=== PATIENT | male | born 1955 | race Caucasian/White ===

== ENCOUNTER 2018-09-12 06:20 | Inpatient (IN) | payer MEDICAID ==
[~2018-09-12] VITALS: Ht 172.7 cm; Wt 90.3 kg
[2018-09-12 06:25] VITALS: BP 133/72
--- NOTE | 2018-09-12 06:25 | NUR ---
63/M PRESENTS WITH DAUGHTER, REFERRED BY DR. RODRIGUEZ FOR I&D AND FISTULOTOMY SURGERY OF L ANTERIOR PERIANAL ABSCESS AND ANAL FISTULA. REPORTS 3/10 PERIANAL DISCOMFORT. DENIES FEVER. PT AOX4, GCS 15, RR EVEN AND UNLABORED. DENIES MED HX. REPORTS FINISHING ABX RX.
--- NOTE | 2018-09-12 06:31 | NUR ---
PT TAKEN TO BED 11
[2018-09-12] MEDS ORDERED: NACL 0.9% 1,000 ML IV ONE (06:40)
[2018-09-12 07:09] LABS: EOSINOPHILS # (AUTO) 0.1 K/uL (0-0.4); EOSINOPHILS % (AUTO) 2.6 % (0.0-4.0); HEMATOCRIT 41.8 % (36-52); LYMPHOCYTES # (AUTO) 1.7 K/uL (2.0-11.5); LYMPHOCYTES % (AUTO) 33.8 % (20.5-51.1); MEAN CORPUSCULAR HEMOGLOBIN 30 pg (27-31); MEAN CORPUSCULAR HGB CONC 33 g/dL (33-37); MEAN CORPUSCULAR VOLUME 91.1 fL (80-94); MONOCYTES # (AUTO) 0.3 K/uL (0.8-1.0); MONOCYTES % (AUTO) 6.1 % (1.7-9.3); NEUTROPHILS # (AUTO) 2.8 K/uL (1.8-7.7); NEUTROPHILS % (AUTO) 56.5 % (42.2-75.2); PLATELET COUNT (AUTO) 285 K/uL (140-450); RED BLOOD CELL COUNT(AUTO) 4.59 MIL/uL (4.20-6.10); RED CELL DISTRIBUTION WIDTH 13.7 % (11.6-13.7)
[2018-09-12 07:13] LABS: APPEARANCE,URINE CLEAR (CLEAR); BILIRUBIN,URINE NEGATIVE (NEGATIVE); BLOOD, URINE 3+ (NEGATIVE); COLOR,URINE YELLOW (YELLOW); LEUKOCYTE ESTERASE ,URINE NEGATIVE (NEGATIVE); NITRITE, URINE NEGATIVE (NEGATIVE); UGLUCOSE NEGATIVE (NEGATIVE)
[2018-09-12 07:17] LABS: ANION GAP 13.1 (8-16); CARBON DIOXIDE 26.5 mmol/L (21-32); CREATININE 0.8 mg/dL (0.7-1.3); POTASSIUM 3.6 mmol/L (3.5-5.1)
[2018-09-12 07:19] LABS: RBC,URINE 11-20 (MOD) /HPF (0-5)
[2018-09-12 07:20] LABS: WBC,URINE 0-5 (RARE) /HPF (0-5)
[2018-09-12 07:23] LABS: ALBUMIN 4.1 g/dL (3.4-5.0)
--- NOTE | 2018-09-12 07:23 | NUR ---
Pt report given to KATRINA. Transfer of care at this time.
[2018-09-12] MEDS ORDERED: LORazepam 2 MG/ML VIAL IVP PRN (08:00)
[2018-09-12] MEDS ORDERED: MORPHINE SULFATE 2 MG/ML SYR IVP PRN (08:00)
[2018-09-12] MEDS ORDERED: ACETAMINOPHEN 325 MG TAB PO PRN (08:00)
[2018-09-12] MEDS ORDERED: ONDANSETRON 4 MG/2 ML VIAL IVP PRN (08:00)
[2018-09-12] MEDS ORDERED: ALBUTEROL 0.083% 2.5 MG/3 ML NEBU INH PRN (08:00)
--- NOTE | 2018-09-12 08:17 | NUR ---
PT. RESTING IN BED, RR EVEN AND UNLABORED . VSS. FAMILY MEMBER AT BEDSIDE. HOB ELEVATED. WILL CONTINUE TO MONITOR. SAFETY PRECAUTIONS IN PLACE.
--- NOTE | 2018-09-12 09:00 | NUR ---
Note pina in EDM - 09/12/18 at 0910 by CADE Patient will be admitted to care of DR. DELCID . Admited to MED SURG . Will go to room 105B. Belongings list completed. Report to SHEKHAR PHILIP .
[2018-09-12 09:05] VITALS: BP 113/72
--- NOTE | 2018-09-12 09:05 | NUR ---
PATIENT WAS TRANSFERRED IN WHEELCHAIR FROM ER. PATIENT AMBULATED SELF TO BED. REPORT WAS GIVEN AT BEDSIDE. VS WAS TAKEN. MRSA WAS SWABBED. PATIENT WAS AWAKE, ALERT. RESPIRATION EVEN, UNLABOR. SKIN DRY AND WARM. IV PATENT AND INTACT. DENIED PAIN, SOB. PATIENT WAS ORIENTED ROOM, STAFF, AND CALL LIGHT. PLAN OF CARE WAS DISCUSSED WITH PATIENT. BED AT LOW POSITION, SIDE RAILS UP. CALL LIGHT WITHIN REACH. FAMILY AT BEDSIDE
[2018-09-12] MEDS: DEXT 5% / NACL 0.45% 1,000 ML IV SCH ×2 (10:13→20:27)
--- NOTE | 2018-09-12 11:54 | NUR ---
PATIENT WAS AWAKE, ALERT. RESPIRATION EVEN, UNLABOR ON ROOM AIR. NO DISTRESS NOTED AT THIS TIME. FAMILY AT BEDSIDE
--- NOTE | 2018-09-12 14:00 | NUR ---
PATIENT WAS AWAKE, ALERT. RESPIRATION EVEN, UNLABOR ON ROOM AIR. NO DISTRESS NOTED AT THIS TIME. FAMILY AT BEDSIDE
[2018-09-12 16:00] VITALS: BP 109/74
--- NOTE | 2018-09-12 16:35 | NUR ---
PATIENT WAS AWAKE, ALERT. RESPIRATION EVEN, UNLABOR ON ROOM AIR. DENIED PAIN AT THIS TIME. NO DISTRESS NOTED. FAMILY AT BEDSIDE. CALL LIGHT WITHIN REACH
--- NOTE | 2018-09-12 18:23 | NUR ---
PATIENT WAS AWAKE, ALERT. RESPIRATION EVEN, UNLABOR ON ROOM AIR. IV PATENT AND INTACT. DENIED PAIN AT THIS TIME. NO DISTRESS NOTED. PATIENT REMAIN NPO
--- NOTE | 2018-09-12 18:36 | NUR ---
PATIENT WAS TRANSFERRED TO OR IN [facility]. PATIENT IS STABLE AT THIS TIME
[2018-09-12] MEDS ORDERED: PROPOFOL 200 MG/20 ML VIAL IV ONE (18:40)
[2018-09-12] MEDS ORDERED: SEVOFLURANE 250 ML BTL INH ONE (18:40)
[2018-09-12] MEDS ORDERED: PIPERACILLIN/TAZOBACTAM 3.375 GM VIAL IV ONE (18:51)
[2018-09-12] MEDS ORDERED: MEPERIDINE 50 MG/ML SYR ONE (18:53)
[2018-09-12] MEDS ORDERED: MIDAZOLAM 2 MG/2 ML VIAL ONE (18:53)
[2018-09-12] MEDS ORDERED: fentaNYL 0.05 MG/ML VIAL ONE (18:53)
[2018-09-12] MEDS ORDERED: BUPIVACAINE-MPF 0.25% 30 ML VIAL INJ ONE (18:59)
--- NOTE | 2018-09-12 19:28 | NUR ---
ENDORSEMENT GIVEN TO HOTBED TRANSFER OPERATOR NURSE. PATIENT IS STABLE AT THIS TIME Addendum: 09/12/18 at 1928 by Ana Fierro RN CORRECTION: PATIENT IS IN OR AT THIS TIME
[2018-09-12 20:20] VITALS: BP 116/81
--- NOTE | 2018-09-12 20:20 | NUR ---
RECD. FROM RECOVERY ROOM VIA BED, S/P I & D OF LEFT ANTERIOR PERIANAL ABSCESS WITH ANAL FISTULOTOMY. AWAKE, A/OX4. RESPIRATION EVEN AND UNLABORED. IV OF LR INFUSING RIGHT AC G20 AT 80 ML/HR. INCISION IN THE PERIANAL AREA COVERED WITH DRESSING DRY AND INTACT. PLAN OF CARE DISCUSSED WITH PATIENT AND DAUGHTER, VERBALIZED UNDERSTANDING. DENIES PAIN 0/10.
[2018-09-12] MEDS: HYDROcodone/APAP 5/325 MG 1 TAB TAB PO PRN (20:40)
[2018-09-12 21:20] VITALS: BP 111/61
--- NOTE | 2018-09-12 21:30 | NUR ---
VS STABLE, NO DISTRESS NOTED.
--- NOTE | 2018-09-12 22:30 | NUR ---
ABLE TO VOID FREELY, 180 ML OF URINE IN THE URINAL. ENCOURAGED TO TURN ALTERNATELY TO SIDES.
--- NOTE | 2018-09-12 23:00 | NUR ---
ABLE TO TOLERATE WELL CLEAR LIQUID DIET.
--- NOTE | 2018-09-12 23:25 | NUR ---
Patient's Plan of Care was discussed and reviewed with MANAGER OF PROGRAM: ANSON
[2018-09-13] VITALS: BP 107/59
[2018-09-13] MEDS ORDERED: PIPERACILLIN/TAZOBACTAM 3.375 GM VIAL IV ONE ×2 (00:07→05:42)
[2018-09-13] MEDS: PIPER/TAZO 3.375GM/D5W PREMIX 50 ML IV SCH ×3 (00:27→12:47)
[2018-09-13] MEDS: DEXT 5% / NACL 0.45% 1,000 ML IV SCH ×2 (01:06→08:57)
--- NOTE | 2018-09-13 02:40 | NUR ---
REPORT RECEIVED FROM MAGNOLIA BRUNNER FOR CONTINUITY OF CARE, PT IN STABLE CONDITION.
--- NOTE | 2018-09-13 06:12 | NUR ---
PT RECEIVED ZOSYN ORDERED. PT V/S FOLLOWS T 97.7 P 65 R 18 B/P 116/66 02 96 P 65. PT WOUND DRESSING INTACT WITH MODERATE DRAINAGE. PT HAS NO C/O VOICED. DENIES PAIN AT THIS TIME. BED LOW IV SITE INTACT AND CALL NOGUERA IN REACH.
--- NOTE | 2018-09-13 07:19 | NUR ---
RECEIVED REPORT FROM SUPERVISOR [employer] AT BEDSIDE. PATIENT IS AWAKE, ALERT. RESPIRATIONS ARE EVEN AND UNLABORED. SKIN IS DRY AND WARM. IV IN RIGHT AC 20G PATENT AND INTACT. DENIES PAIN AND SOB. PATIENT IS ORIENTED CALL LIGHT. PLAN OF CARE WAS DISCUSSED WITH PATIENT. BED AT LOW POSITION, SIDE RAILS UP. CALL LIGHT WITHIN REACH. WILL ROUND FREQUENTLY.
--- NOTE | 2018-09-13 07:20 | NUR ---
REPORT GIVEN TO NAVIN CORRIGAN DAYSHIFT NURSE AT BEDSIDE FOR CONTINUITY OF CARE, PT IN STABLE CONDITION.
[2018-09-13 07:28] LABS: BASOPHILS % (AUTO) 0.5 % (0.0-2.0); EOSINOPHILS % (AUTO) 0.8 % (0.0-4.0); HEMATOCRIT 39.3 % (36-52); HEMOGLOBIN 13.3 g/dL (12.0-18.0); LYMPHOCYTES # (AUTO) 1.2 K/uL (2.0-11.5); MEAN CORPUSCULAR HEMOGLOBIN 31 pg (27-31); MEAN CORPUSCULAR HGB CONC 34 g/dL (33-37); MEAN CORPUSCULAR VOLUME 91.4 fL (80-94); MONOCYTES # (AUTO) 0.4 K/uL (0.8-1.0); MONOCYTES % (AUTO) 6.2 % (1.7-9.3); NEUTROPHILS # (AUTO) 4.8 K/uL (1.8-7.7); NEUTROPHILS % (AUTO) 73.5 % (42.2-75.2); PLATELET COUNT (AUTO) 273 K/uL (140-450); RED BLOOD CELL COUNT(AUTO) 4.29 MIL/uL (4.20-6.10); RED CELL DISTRIBUTION WIDTH 14.1 % (11.6-13.7); WHITE BLOOD COUNT (AUTO) 6.5 K/uL (4.8-10.8)
[2018-09-13 07:46] LABS: ALBUMIN 3.5 g/dL (3.4-5.0); ANION GAP 8.5 (8-16); CARBON DIOXIDE 29.7 mmol/L (21-32); CREATININE 0.8 mg/dL (0.7-1.3); POTASSIUM 4.2 mmol/L (3.5-5.1); TOTAL BILIRUBIN 1.2 mg/dL (0.0-1.0)
[2018-09-13 08:00] VITALS: BP 117/76
--- NOTE | 2018-09-13 08:21 | NUR ---
PATIENT HAS BEEN SCREENED AND CATEGORIZED LOW NUTRITION RISK. PATIENT WILL BE SEEN WITHIN 7 DAYS OF ADMISSION. 09/18/[address]
[2018-09-13] MEDS: HYDROcodone/APAP 5/325 MG 1 TAB TAB PO PRN ×2 (11:03→15:10)
--- NOTE | 2018-09-13 11:03 | NUR ---
PT COMPLAINING OF 5/10 PAIN AT FISTULA SIGHT. NORCO GIVEN. WILL REASSESS FOR MED EFFECTIVENESS.
[2018-09-13 16:00] VITALS: BP 132/76
[2018-09-13] MEDS ORDERED: ACET-8386 PO (16:13)
[2018-09-13] MEDS ORDERED: AMOX-1000 PO (16:16)
--- NOTE | 2018-09-13 17:40 | NUR ---
PT DISCHARGED HOME WITH SCHEDULED HOME HEALTH THROUGH 'S OFFICE. PT DISCHARGE PAPERWORK SIGNED. ALL PAPERWORK TAKEN WITH PT. PT TOOK ALL PERSONAL BELONGINGS WITH HIM. IV REMOVED WITH TIP INTACT. PT AND FAMILY INSTRUCTED ON HOME WOUND DRESSING CHANGE TO BE DONE TOMORROW. PT AND FAMILY VERBALIZED UNDERSTANDING. VITAL SIGNS STABLE. PT STABLE AT THIS TIME. WRIST BAND REMOVED. FOLLOW-UP WITH DR. RODRIGUEZ GIVEN TO PT.
== END 2018-09-13 17:40 | disposition home health service (06) | DRG 951 ==
LOC: MED 06:20 → MTU 07:57
PROVIDERS: ADMIT Hospitalist; ATTEND Hospitalist
PROC: 0J9B0ZZ Drainage of Perineum Subcutaneous Tissue and Fascia, Open Approach (ICD-10-PCS; principal; 2018-09-12 18:30)
DX: K61.2 Anorectal abscess (principal)
CPT/HCPCS: 36415; 71045; 80053; 81001; 82150; 83690; 85025; 87040; 87070; 87075; 87081; 87205; 93005; 96360; 96361; 99285; J2175; J2250; J2270; J2543; J2704; J3010; J3490; J7060; Q0092